=== PATIENT | male | born 1980 | race Two or more races ===

== ENCOUNTER 2020-03-02 07:20 | Emergency (ER) | payer OTHER ==
[~2020-03-02] VITALS: Ht 172.7 cm; Wt 82.0 kg
[2020-03-02 07:26] VITALS: BP 129/92
--- NOTE | 2020-03-02 07:45 | NUR ---
PT HAS CO OF ALLERGY SYMPTOMS OF CONGESTION IN SINUS AND THROAT, ONGOING FOR PAST COUPLE MONTHS. PT HAS BEEN TAKING CLARITAN, DOESNT HELP MUCH. PT IS NOT IS RESP DISTRESS. RESP EVEN AND UNLABORED. RR 18. RA SAT 95%. DENIES HEALTH HISTORY.
--- NOTE | 2020-03-02 08:33 | NUR ---
Patient/Caregiver given discharge instructions and they have confirmed that they understand the instructions. Patient ambulatory with steady gait.
== END 2020-03-02 08:35 | disposition home or self-care (01) ==
LOC: ED 08:30
DX: J30.2 Other seasonal allergic rhinitis (principal); F41.9 Anxiety disorder, unspecified; Z87.891 Personal history of nicotine dependence
CPT/HCPCS: 99283